=== PATIENT | female | born 1955 | race Caucasian/White ===

== ENCOUNTER 2017-03-30 18:30 | Emergency (ER) | payer SELFPAY | END 2017-03-30 22:13 | disposition home or self-care (01) | LOC: D.ER 18:30 | DX: S82.002A Unspecified fracture of left patella, initial encounter for closed fracture (principal); W01.0XXA Fall on same level from slipping, tripping and stumbling without subsequent striking against object, initial encounter; Y93.89 Activity, other specified; Y92.019 Unspecified place in single-family (private) house as the place of occurrence of the external cause; Z95.0 Presence of cardiac pacemaker ==

== ENCOUNTER 2017-11-15 14:21 | Observation (INO) | payer MEDICAID ==
[~2017-11-15] VITALS: Ht 160 cm; Wt 54.5 kg
--- NOTE | ~2017-11-15 | MORECARE ---
CASE MANAGEMENT DISCHARGE SUMMARY PATIENT: TACOS GOYAL UNIT: [id number] ADM DATE: 11/15/17 AGE: 62 : 51 SEX: F ROOM/BED: D.2134 AUTHOR: ALEJO WAN PHYSICIAN: REFERRING PHYSICIAN: VICKIE PEDRAZA MD DATE OF SERVICE: 11/20/17 Discharge Plan Patient Name: TACOS GO[facility]AL [facility] [facility] 1955 Planned Disposition: Home Anticipated Discharge Date: 11/19/17 Discharge Date: 11/19/2017 Expected LOS: 4 Initial Reviewer: [email or web address] Initial Review Date: 11/20/2017 Generated: 11/20/17 9:09 am Patient Name: TACOS GOYAL Page 43383 at 0809 All edits/amendments must be made on the electronic document DICTATION DATE: 11/20/17 08 DIE POLISHER: MARY BETH 11/20/17 08 RPT#: [id number] DC DATE:11/19/17 STATUS: DIS IN [facility] [address] [facility] [place] [address] END OF REPORT
[2017-11-15 15:30] LABS: BASOPHILS 1.1 % (0-2); EOSINOPHILS 2.3 % (0-7); HEMATOCRIT 27.3 % (36.0-48.0); HEMOGLOBIN 9.4 g/dL (12-16); LYMPHOCYTES 38.7 % (15-50); MCH 32.9 pg (26.0-34.0); MCHC 34.4 g/dL (31.0-37.0); MCV 95.5 fL (80.0-100.0); MEAN PLATELET VOLUME 10.6 fL (7.4-10.4); MONOCYTES 5.5 % (2-11); NEUTROPHILS 52.4 % (40-80); PLATELET COUNT 171 10x3/uL (130-400); RBC 2.86 10x6/uL (4.00-5.40); RDW 11.5 % (11.5-14.5); WBC 4.7 10x3/uL (4.8-10.8)
[2017-11-15 15:46] LABS: ALBUMIN 3.8 g/dL (3.4-5.0); ALKALINE PHOSPHATASE 97 U/L (46-116); ALT (SGPT) 14 U/L (10-68); BILIRUBIN - TOTAL 0.29 mg/dL (0.2-1.3); CALC OSMOLALITY 298 mosm/kg (275-300); CALCIUM 9.5 mg/dL (8.5-10.1); CARBON DIOXIDE 30.4 mmol/L (21.0-32.0); CHLORIDE - SERUM 102 mmol/L (98-107); CREATININE - SERUM 2.7 mg/dL (0.6-1.3); GLUCOSE 121 mg/dL (74-106); POTASSIUM - SERUM 3.9 mmol/L (3.5-5.1); PROTEIN - SERUM 7.6 g/dL (6.4-8.2); SODIUM 142 mmol/L (136-145); UREA NITROGEN 55 mg/dL (7-18); eGFR NON AFRICAN AMERICAN 19 mL/min (90-120)
[2017-11-15 15:54] LABS: APTT 27.3 SECONDS (22.8-39.4); INR 1.03 (0.85-1.17); PROTIME 13.1 SECONDS (11.6-15.0)
[2017-11-15 16:07] LABS: CKMB 1.7 U/L (0.0-3.6); CREATINE KINASE 109 UL (21-215); THYROID STIMULATING HORMONE 2.08 uIU/mL (0.36-3.74)
[2017-11-15 16:09] LABS: TROPONIN-I < 0.017 ng/mL (0.000-0.060)
[2017-11-15 16:27] LABS: UDS - AMPHET NEGATIVE QUAL (NEGATIVE); UDS - BARB NEGATIVE QUAL (NEGATIVE); UDS - BENZO NEGATIVE QUAL (NEGATIVE); UDS - COCAINE NEGATIVE QUAL (NEGATIVE); UDS - OPIATE NEGATIVE QUAL (NEGATIVE); UDS - PCP NEGATIVE QUAL (NEGATIVE); UDS - THC NEGATIVE QUAL (NEGATIVE)
[2017-11-15 16:32] VITALS: BP 137/63
[2017-11-15 16:32] LABS: APPEARANCE CLEAR (CLEAR); BILIRUBIN NEGATIVE (NEGATIVE); COLOR YELLOW (YELLOW); GLUCOSE NEGATIVE (NEGATIVE); KETONE NEGATIVE (NEGATIVE); NITRITE NEGATIVE (NEGATIVE); PROTEIN 1+ mg/dL (NEGATIVE); UROBILINOGEN NORMAL (NORMAL)
[2017-11-15 16:33] LABS: WHITE CELLS - URINE 0-5 /hpf (0-5)
[2017-11-15 16:34] LABS: BACTERIA FEW /hpf (NONE SEEN)
[2017-11-15 18:42] VITALS: BP 143/61
[2017-11-15 18:45] LABS: CKMB 1.8 U/L (0.0-3.6); CREATINE KINASE 133 UL (21-215)
[2017-11-15 18:48] LABS: TROPONIN-I < 0.017 ng/mL (0.000-0.060)
[2017-11-15 19:00] VITALS: BP 136/68
[2017-11-15 20:03] VITALS: BP 140/59; BMI 21.3
[2017-11-15] MEDS ORDERED: POTASSIUM CHLO20 MEQ PO (21:40)
[2017-11-15] MEDS ORDERED: KEPPRA750 MG PO (21:41)
[2017-11-15] MEDS ORDERED: LASIX80 MG PO (21:41)
[2017-11-15] MEDS ORDERED: LOSARTAN POTASS25 MG PO (21:42)
[2017-11-15] MEDS ORDERED: PRAVASTATIN SOD10 MG PO (21:43)
[2017-11-15] MEDS ORDERED: COREG12.5 MG PO (21:44)
[2017-11-15] MEDS ORDERED: XANAX0.25 MG PO (21:46)
[2017-11-15] MEDS ORDERED: ISOSORBIDE MONO30 M1 PO (21:48)
[2017-11-15] MEDS ORDERED: LEVEMIR IN100 UNITS/ SC (21:49)
[2017-11-15 22:25] VITALS: BP 140/59
[2017-11-16] VITALS (8 sets, daily range): BP systolic 100–151; BP diastolic 40–70; Ht 160 cm; Wt 54.5 kg
[2017-11-16 00:56] LABS: CKMB 1.6 U/L (0.0-3.6); CREATINE KINASE 95 UL (21-215)
[2017-11-16 00:59] LABS: TROPONIN-I < 0.017 ng/mL (0.000-0.060)
[2017-11-16 06:35] LABS: BASOPHILS 0.5 % (0-2); EOSINOPHILS 2.3 % (0-7); HEMATOCRIT 23.8 % (36.0-48.0); HEMOGLOBIN 8.3 g/dL (12-16); LYMPHOCYTES 36.3 % (15-50); MCH 32.8 pg (26.0-34.0); MCHC 34.9 g/dL (31.0-37.0); MCV 94.1 fL (80.0-100.0); MEAN PLATELET VOLUME 10.6 fL (7.4-10.4); MONOCYTES 7.9 % (2-11); PLATELET COUNT 140 10x3/uL (130-400); RBC 2.53 10x6/uL (4.00-5.40); RDW 11.7 % (11.5-14.5); WBC 3.9 10x3/uL (4.8-10.8)
[2017-11-16 06:46] LABS: CKMB 1.1 U/L (0.0-3.6); CREATINE KINASE 85 UL (21-215); TROPONIN-I < 0.017 ng/mL (0.000-0.060)
[2017-11-16 06:56] LABS: ANION GAP 13.5 mmol/L (8-16); CALCIUM 9.4 mg/dL (8.5-10.1); CARBON DIOXIDE 27.1 mmol/L (21.0-32.0); CREATININE - SERUM 2.3 mg/dL (0.6-1.3); MAGNESIUM - SERUM 1.8 mg/dL (1.8-2.4); POTASSIUM - SERUM 3.6 mmol/L (3.5-5.1)
[2017-11-16 11:26] LABS: % SATURATION 29 % (15-55); IRON 74 ug/dl (35-150); TOTAL IRON BIND CAPACITY 253 ug/dl (260-445); UNSAT IRON BIND CAPACITY 179 ug/dl (150-375)
[2017-11-16 17:52] LABS: CKMB 1.2 U/L (0.0-3.6); CREATINE KINASE 115 UL (21-215); TROPONIN-I < 0.017 ng/mL (0.000-0.060)
[2017-11-16 22:36] LABS: CKMB 1.4 U/L (0.0-3.6); CREATINE KINASE 111 UL (21-215); TROPONIN-I < 0.017 ng/mL (0.000-0.060)
[2017-11-17] VITALS (9 sets, daily range): BP systolic 104–141; BP diastolic 57–79
[2017-11-17 05:12] LABS: BASOPHILS 0.7 % (0-2); EOSINOPHILS 1.9 % (0-7); HEMATOCRIT 23.1 % (36.0-48.0); HEMOGLOBIN 8.1 g/dL (12-16); IMMATURE GRANULOCYTES 0.2 % (0-5); MCH 32.9 pg (26.0-34.0); MCHC 35.1 g/dL (31.0-37.0); MCV 93.9 fL (80.0-100.0); MEAN PLATELET VOLUME 10.8 fL (7.4-10.4); NEUTROPHILS 48.2 % (40-80); PLATELET COUNT 124 10x3/uL (130-400); RBC 2.46 10x6/uL (4.00-5.40); RDW 11.6 % (11.5-14.5); WBC 4.2 10x3/uL (4.8-10.8)
[2017-11-17 05:13] LABS: FOLATE (FOLIC ACID) - SERUM 7.1 ng/mL (>3.0)
[2017-11-17 05:31] LABS: CALC OSMOLALITY 300 mosm/kg (275-300); CALCIUM 8.7 mg/dL (8.5-10.1); CARBON DIOXIDE 23.1 mmol/L (21.0-32.0); CHLORIDE - SERUM 109 mmol/L (98-107); CKMB 1.3 U/L (0.0-3.6); CREATINE KINASE 91 UL (21-215); GLUCOSE 108 mg/dL (74-106); POTASSIUM - SERUM 3.5 mmol/L (3.5-5.1); SODIUM 144 mmol/L (136-145); TROPONIN-I 0.024 ng/mL (0.000-0.060); UREA NITROGEN 48 mg/dL (7-18); eGFR NON AFRICAN AMERICAN 27 mL/min (90-120)
[2017-11-18 01:16] VITALS: BP 118/43
[2017-11-18 05:05] LABS: BASOPHILS 0.2 % (0-2); EOSINOPHILS 1.8 % (0-7); HEMATOCRIT 26.3 % (36.0-48.0); HEMOGLOBIN 9.1 g/dL (12-16); IMMATURE GRANULOCYTES 0.2 % (0-5); LYMPHOCYTES 38.7 % (15-50); MCH 32.5 pg (26.0-34.0); MCHC 34.6 g/dL (31.0-37.0); MCV 93.9 fL (80.0-100.0); MEAN PLATELET VOLUME 10.9 fL (7.4-10.4); MONOCYTES 7.1 % (2-11); PLATELET COUNT 123 10x3/uL (130-400); RDW 11.8 % (11.5-14.5); WBC 4.9 10x3/uL (4.8-10.8)
[2017-11-18 05:18] LABS: ANION GAP 13.7 mmol/L (8-16); CALCIUM 9.2 mg/dL (8.5-10.1); CARBON DIOXIDE 24.8 mmol/L (21.0-32.0); CREATININE - SERUM 2.3 mg/dL (0.6-1.3); POTASSIUM - SERUM 3.5 mmol/L (3.5-5.1)
[2017-11-18 05:51] VITALS: BP 141/67
[2017-11-18 08:20] VITALS: BP 159/73
[2017-11-18 09:00] VITALS: BP 132/63; BP 139/64; BP 159/73
[2017-11-18 20:42] VITALS: BP 112/50
[2017-11-19 01:36] VITALS: BP 133/64
[2017-11-19 06:04] VITALS: BP 123/66
[2017-11-19 06:29] LABS: BASOPHILS 0.6 % (0-2); EOSINOPHILS 2.3 % (0-7); HEMATOCRIT 21.8 % (36.0-48.0); LYMPHOCYTES 31.9 % (15-50); MCH 32.8 pg (26.0-34.0); MCHC 34.4 g/dL (31.0-37.0); MCV 95.2 fL (80.0-100.0); MEAN PLATELET VOLUME 10.4 fL (7.4-10.4); NEUTROPHILS 58.2 % (40-80); PLATELET COUNT 125 10x3/uL (130-400); RBC 2.29 10x6/uL (4.00-5.40); RDW 11.8 % (11.5-14.5); WBC 4.9 10x3/uL (4.8-10.8)
[2017-11-19 06:33] LABS: ANION GAP 11.5 mmol/L (8-16); CALCIUM 8.7 mg/dL (8.5-10.1); CARBON DIOXIDE 25.9 mmol/L (21.0-32.0); CREATININE - SERUM 2.2 mg/dL (0.6-1.3); POTASSIUM - SERUM 3.4 mmol/L (3.5-5.1)
[2017-11-19 06:41] LABS: HEMOGLOBIN 7.5 g/dL (12-16)
[2017-11-19 09:15] VITALS: BP 127/60
[2017-11-19 11:05] VITALS: BP 164/69
[2017-11-19 14:42] VITALS: BP 156/87
== END 2017-11-19 17:50 | disposition home or self-care (01) ==
LOC: D.ER 14:21 → OBSVTIME 17:47 → D.M2 17:47 → D.EDHOLD 17:47 → D.M2 18:33
PROVIDERS: Family Medicine; Internal Medicine Nephrology
DX: I95.1 Orthostatic hypotension (principal); I42.9 Cardiomyopathy, unspecified; D50.9 Iron deficiency anemia, unspecified; D62 Acute posthemorrhagic anemia; I10 Essential (primary) hypertension; E78.5 Hyperlipidemia, unspecified; E11.9 Type 2 diabetes mellitus without complications; G40.909 Epilepsy, unspecified, not intractable, without status epilepticus; K21.9 Gastro-esophageal reflux disease without esophagitis; N17.9 Acute kidney failure, unspecified; E86.9 Volume depletion, unspecified; D61.818 Other pancytopenia; K44.9 Diaphragmatic hernia without obstruction or gangrene; K92.1 Melena; Z95.810 Presence of automatic (implantable) cardiac defibrillator

== ENCOUNTER 2017-11-26 21:23 | Inpatient (IN) | payer MEDICARE, MEDICAID ==
[~2017-11-26] VITALS: Ht 160 cm; Wt 56.1 kg
--- NOTE | ~2017-11-26 | MORECARE ---
CASE MANAGEMENT DISCHARGE SUMMARY PATIENT: TACOS GOYAL UNIT: [id number] ADM DATE: 11/27/17 AGE: 62 : 51 SEX: F ROOM/BED: D.0749 AUTHOR: SOCO,DOC PHYSICIAN: REFERRING PHYSICIAN: VICKIE PEDRAZA MD DATE OF SERVICE: 12/03/17 Discharge Plan Patient Name: TACOS GOYAL Facility: [facility]:[place] : 1955 Planned Disposition: Home Anticipated Discharge Date: 11/30/17 Discharge Date: 11/30/2017 Expected LOS: 3 Initial Reviewer: [email or web address] Initial Review Date: 11/28/2017 Generated: 12/03/17 9:37 am Comments DCP- Discharge Planning Updated by [email or web address]: Wojciech Cameron on 11/28/17 1:[address] Patient Name: TACOS GOYAL Admission Status: ER Accout number: [id number] Admission Date: 11-27-2017 : 1955 Admission Diagnosis: Attending: VICKIE PEDRAZA Current LOS: 1 Anticipated DC Date: 11-28-2017 Planned Disposition: Home Primary Insurance: MEDICAID [place] Discharge Planning Comments: CM RECEIVED REQUEST TO MEET WITH PT IN ROOM. CM MET WITH PT IN ROOM TO DISCUSS DISCHARGE PLANNING AND NEEDS. PT REPORTS NEEDING A RIDE HOME AT DISCHARGE. PT REPORTS LIVING AT HOME INDEPENDENTLY WITH HER FRIEND THAT ASSISTS WITH MEDICATION MANAGEMENT AND TRANSPORTATION. PT HAS A GLUCOMETER WITH NO MEDICAL EQUIPMENT PROVIDER PREFERENCE AND NO OUTSIDE SERVICES ASSISTING IN THE HOME. CM DISCUSSED AVAILABILITY OF HOME HEALTH, REHAB SERVICES AND MEDICAL EQUIPMENT. PT DENIES DISCHARGE NEEDS OTHER THAN NEEDING A RIDE HOME. CM CALLED PT'S EMERGENCY CONTACT, MARIPOSA ASHU, , WHO REPORTS THAT SHE WILL ORTHODONTIC TECHNICIAN PT AT DISCHARGE. DISCHARGE ADDRESS [address] [place] [address], [address] FOR DISCHARGE TRANSPORTATION, CONTACT MARIPOSA [place], . PT GOING HOME WITH MARIPOSA, DENIES DISCHARGE NEEDS AT THIS TIME. CM TO FOLLOW AND ASSIST IF NEEDED. Mid Level Provider: Wojciech Cameron DCPIA - Discharge Planning Initial Assessment Updated by [email or web address]: Wojciech Cameron on 11/28/17 2:31 pm * Is the patient Alert and Oriented? Yes * How many steps to enter\exit or inside your home? * PCP NONE * Pharmacy [facility] * Preadmission Environment Home with Family * ADLs Partial Dependent * Partial ADLs (Assistance needed) Medication Management * Equipment Glucometer * Other Equipment NO MEDICAL EQUIPMENT PROVIDER PREFERENCE * List name and contact numbers for known caregivers / representatives who currently or will assist patient after discharge: CRISTINA NEWBERRY, * Verbal permission to speak to the caregivers and representatives has been obtained from the patient. Yes * Community resources currently utilized None * Please name any agencies selected above. CIRSTINA NEWBERRY, * Additional services required to return to the preadmission environment? No * Can the patient safely return to the preadmission environment? Yes * Has this patient been hospitalized within the prior 30 days at any hospital? No Coverage Notice Reviewer: [email or web address] Mickey Ruiz Notice Issued Date-Time: 11/30/2017 11:41 Notice Type: IM Discharge Notice Notice Delivered To: Patient Relationship to Patient: Self Waist Fitter Name: Delivery Method: HAND - Hand Delivered Natasha Days: Prior Verbal Notification: Recipient Understood Notice: Yes Recipient Signature: Yes Med Rec Note Co-signed by Attending: Coverage Notice Comment: Last DP export: 11/28/17 1:39 Patient Name: TACOS GOYAL Page 00355 at 0837 All edits/amendments must be made on the electronic document DICTATION DATE: 12/03/17835 LOCKER ATTENDANT: MARY BETH 12/03/17835 RPT#: [id number] DC DATE:11/30/17 STATUS: DIS IN [facility] [address] [place] [address] END OF REPORT
--- NOTE | ~2017-11-26 | MORECARE ---
CASE MANAGEMENT DISCHARGE SUMMARY PATIENT: TACOS GOYAL UNIT: [id number] ADM DATE: 11/27/17 AGE: 62 : 51 SEX: F ROOM/BED: D.3489 AUTHOR: SOCO,DOC PHYSICIAN: REFERRING PHYSICIAN: VICKIE PEDRAZA MD DATE OF SERVICE: 11/28/17 Discharge Plan Patient Name: TACOS GOYAL Facility: [facility]:[place] : 1955 Planned Disposition: Home Anticipated Discharge Date: 11/28/17 Discharge Date: Expected LOS: 1 Initial Reviewer: [email or web address] Initial Review Date: 11/28/2017 Generated: 11/28/17 3:39 pm Comments DCP- Discharge Planning Updated by [email or web address]: Wojciech Cameron on 11/28/17 1:[address] Patient Name: TACOS GOYAL Admission Status: ER Accout number: [id number] Admission Date: 11-27-2017 : 1955 Admission Diagnosis: Attending: VICKIE PEDRAZA Current LOS: 1 Anticipated DC Date: 11-28-2017 Planned Disposition: Home Primary Insurance: MEDICAID [place] Discharge Planning Comments: CM RECEIVED REQUEST TO MEET WITH PT IN ROOM. CM MET WITH PT IN ROOM TO DISCUSS DISCHARGE PLANNING AND NEEDS. PT REPORTS NEEDING A RIDE HOME AT DISCHARGE. PT REPORTS LIVING AT HOME INDEPENDENTLY WITH HER FRIEND THAT ASSISTS WITH MEDICATION MANAGEMENT AND TRANSPORTATION. PT HAS A GLUCOMETER WITH NO MEDICAL EQUIPMENT PROVIDER PREFERENCE AND NO OUTSIDE SERVICES ASSISTING IN THE HOME. CM DISCUSSED AVAILABILITY OF HOME HEALTH, REHAB SERVICES AND MEDICAL EQUIPMENT. PT DENIES DISCHARGE NEEDS OTHER THAN NEEDING A RIDE HOME. CM CALLED PT'S EMERGENCY CONTACT, MARIPOSA ASHU, , WHO REPORTS THAT SHE WILL LABVIEW PROGRAMMER PT AT DISCHARGE. DISCHARGE [address]ESS [address] [place] [address], [place] [address], [place], [place]. FOR DISCHARGE TRANSPORTATION, CONTACT MARIPOSA ASHU, . PT GOING HOME WITH MARIPOSA, DENIES DISCHARGE NEEDS AT THIS TIME. CM TO FOLLOW AND ASSIST IF NEEDED. Restaurant Attendant: Wojciech Cameron DCPIA - Discharge Planning Initial Assessment Updated by [email or web address]: Wojciech Cameron on 11/28/17 2:31 pm * Is the patient Alert and Oriented? Yes * How many steps to enter\exit or inside your home? * PCP NONE * Pharmacy [facility] * Preadmission Environment Home with Family * ADLs Partial Dependent * Partial ADLs (Assistance needed) Medication Management * Equipment Glucometer * Other Equipment NO MEDICAL EQUIPMENT PROVIDER PREFERENCE * List name and contact numbers for known caregivers / representatives who currently or will assist patient after discharge: CRISTINA NEWBERRY, * Verbal permission to speak to the caregivers and representatives has been obtained from the patient. Yes * Community resources currently utilized None * Please name any agencies selected above. CRISTINA NEWBERRY, * Additional services required to return to the preadmission environment? No * Can the patient safely return to the preadmission environment? Yes * Has this patient been hospitalized within the prior 30 days at any hospital? No Last DP export: 11/28/17 1:29 Patient Name: TACOS GOYAL Page 07748 at 1439 All edits/amendments must be made on the electronic document DICTATION DATE: 11/28/171438 RN POST PARTUM: MARY BETH 11/28/171438 RPT#: [id number] DC DATE: STATUS: ADM IN [facility] [address] [place] [address] END OF REPORT
--- NOTE | ~2017-11-26 | MORECARE ---
CASE MANAGEMENT DISCHARGE SUMMARY PATIENT: TACOS GOYAL UNIT: [id number] ADM DATE: 11/27/17 AGE: 62 : 51 SEX: F ROOM/BED: D.2107 AUTHOR: ALEJO WAN PHYSICIAN: REFERRING PHYSICIAN: VICKIE PEDRAZA MD DATE OF SERVICE: 11/27/17 Discharge Plan Patient Name: TACOS GOYAL Facility: [facility]:[place] : 1955 Planned Disposition: Anticipated Discharge Date: Discharge Date: Expected LOS: Initial Reviewer: [email or web address] Initial Review Date: 11/27/2017 Generated: 11/27/17 11:25 am Patient Name: TACOS GOYAL Page 41612 at 1025 All edits/amendments must be made on the electronic document DICTATION DATE: 11/27/17 1025 DEICER REPAIRER PNEUMATIC: MARY BETH 11/27/17 1025 RPT#: [id number] DC DATE: STATUS: ADM IN [facility] [address] [place] [address] END OF REPORT
--- NOTE | ~2017-11-26 | MORECARE ---
CASE MANAGEMENT DISCHARGE SUMMARY PATIENT: TACOS GOYAL UNIT: [id number] ADM DATE: 11/27/17 AGE: 62 : 51 SEX: F ROOM/BED: D.2100 AUTHOR: ALEJO WAN PHYSICIAN: REFERRING PHYSICIAN: VICKIE PEDRAZA MD DATE OF SERVICE: 11/28/17 Discharge Plan Patient Name: TACOS GOYAL Facility: [facility]:[place] : 1955 Planned Disposition: Home Anticipated Discharge Date: 11/28/17 Discharge Date: Expected LOS: 1 Initial Reviewer: [email or web address] Initial Review Date: 11/28/2017 Generated: 11/28/17 3:29 pm Last DP export: 11/27/17 9:25 Patient Name: TACOS GOYAL Page 91011 at 1429 All edits/amendments must be made on the electronic document DICTATION DATE: 11/28/171428 DIRECTOR PROCESS: MARY BETH 11/28/17 142 RPT#: [id number] DC DATE: STATUS: ADM IN [facility] [address] [place] [address] END OF REPORT
[~2017-11-26 21:23] MED LIST: COREG12.5 MG PO; ISOSORBIDE MONO30 M1 PO; KEPPRA750 MG PO; LASIX80 MG PO; LEVEMIR IN100 UNITS/ SC; LOSARTAN POTASS25 MG PO; POTASSIUM CHLO20 MEQ PO; PRAVASTATIN SOD10 MG PO; XANAX0.25 MG PO
[2017-11-26 22:07] VITALS: BP 106/48
[2017-11-26 22:51] LABS: BASOPHILS 0.2 % (0-2); EOSINOPHILS 0.3 % (0-7); HEMATOCRIT 34.4 % (36.0-48.0); HEMOGLOBIN 11.7 g/dL (12-16); IMMATURE GRANULOCYTES 0.2 % (0-5); LYMPHOCYTES 9.7 % (15-50); MCH 33.1 pg (26.0-34.0); MCV 97.2 fL (80.0-100.0); MEAN PLATELET VOLUME 11.7 fL (7.4-10.4); MONOCYTES 8.3 % (2-11); NEUTROPHILS 81.3 % (40-80); RBC 3.54 10x6/uL (4.00-5.40); RDW 12.1 % (11.5-14.5); WBC 6.3 10x3/uL (4.8-10.8)
[2017-11-26 22:58] LABS: PLATELET COUNT 88 10x3/uL (130-400)
[2017-11-26 23:00] VITALS: BP 114/55
[2017-11-26 23:01] LABS: APPEARANCE HAZY (CLEAR); COLOR YELLOW (YELLOW); SPECIFIC GRAVITY 1.015 (1.005-1.020)
[2017-11-26 23:02] LABS: BACTERIA MANY /hpf (NONE SEEN); BILIRUBIN NEGATIVE (NEGATIVE); EPITHELIAL CELLS NSEEN /hpf (0-5); GLUCOSE NEGATIVE (NEGATIVE); KETONE NEGATIVE (NEGATIVE); NITRITE NEGATIVE (NEGATIVE); PROTEIN 2+ mg/dL (NEGATIVE); RED CELLS - URINE OCC /hpf (0-5); UROBILINOGEN NORMAL (NORMAL); WHITE CELLS - URINE >50 /hpf (0-5)
[2017-11-26 23:07] LABS: UDS - AMPHET NEGATIVE QUAL (NEGATIVE); UDS - BARB NEGATIVE QUAL (NEGATIVE); UDS - BENZO NEGATIVE QUAL (NEGATIVE); UDS - COCAINE NEGATIVE QUAL (NEGATIVE); UDS - OPIATE NEGATIVE QUAL (NEGATIVE); UDS - PCP NEGATIVE QUAL (NEGATIVE); UDS - THC NEGATIVE QUAL (NEGATIVE)
[2017-11-26 23:09] LABS: ALBUMIN 3.3 g/dL (3.4-5.0); ALKALINE PHOSPHATASE 131 U/L (46-116); ALT (SGPT) 41 U/L (10-68); BILIRUBIN - TOTAL 0.37 mg/dL (0.2-1.3); CALC OSMOLALITY 301 mosm/kg (275-300); CALCIUM 8.9 mg/dL (8.5-10.1); CARBON DIOXIDE 29.9 mmol/L (21.0-32.0); CHLORIDE - SERUM 100 mmol/L (98-107); CREATININE - SERUM 3.1 mg/dL (0.6-1.3); GLUCOSE 196 mg/dL (74-106); POTASSIUM - SERUM 3.8 mmol/L (3.5-5.1); PROTEIN - SERUM 7.3 g/dL (6.4-8.2); SODIUM 140 mmol/L (136-145); UREA NITROGEN 62 mg/dL (7-18); eGFR NON AFRICAN AMERICAN 16 mL/min (90-120)
[2017-11-26 23:13] LABS: CKMB 0.6 U/L (0.0-3.6); CREATINE KINASE 75 UL (21-215); MAGNESIUM - SERUM 1.7 mg/dL (1.8-2.4); PRO BNP 7259 pg/mL (0-125); THYROID STIMULATING HORMONE 1.24 uIU/mL (0.36-3.74); TROPONIN-I < 0.017 ng/mL (0.000-0.060)
[2017-11-27] VITALS (7 sets, daily range): BP systolic 102–142; BP diastolic 46–65; Ht 160 cm; Wt 56.1 kg
[2017-11-27] MEDS ORDERED: ALBUTEROL SULF8.5 GM INH (00:58)
[2017-11-27 05:59] LABS: BASOPHILS 0.3 % (0-2); EOSINOPHILS 0.1 % (0-7); IMMATURE GRANULOCYTES 0.1 % (0-5); LYMPHOCYTES 9.3 % (15-50); MCH 33.1 pg (26.0-34.0); MCHC 34.4 g/dL (31.0-37.0); MCV 96.3 fL (80.0-100.0); MEAN PLATELET VOLUME 11.4 fL (7.4-10.4); MONOCYTES 3.5 % (2-11); NEUTROPHILS 86.7 % (40-80); RDW 12.2 % (11.5-14.5); WBC 7.4 10x3/uL (4.8-10.8)
[2017-11-27 06:08] LABS: HEMATOCRIT 25.9 % (36.0-48.0); HEMOGLOBIN 8.9 g/dL (12-16); PLATELET COUNT 117 10x3/uL (130-400); RBC 2.69 10x6/uL (4.00-5.40)
[2017-11-27 06:17] LABS: ANION GAP 17.4 mmol/L (8-16); CALCIUM 8.9 mg/dL (8.5-10.1); CARBON DIOXIDE 24.3 mmol/L (21.0-32.0); POTASSIUM - SERUM 3.7 mmol/L (3.5-5.1)
[2017-11-28] VITALS: BP 127/58
[2017-11-28 04:00] VITALS: BP 135/57
[2017-11-28 04:39] LABS: BASOPHILS 0.2 % (0-2); EOSINOPHILS 0.7 % (0-7); HEMOGLOBIN 7.8 g/dL (12-16); IMMATURE GRANULOCYTES 0.2 % (0-5); LYMPHOCYTES 13.2 % (15-50); MCH 32.5 pg (26.0-34.0); MCHC 33.9 g/dL (31.0-37.0); MCV 95.8 fL (80.0-100.0); MEAN PLATELET VOLUME 11.2 fL (7.4-10.4); MONOCYTES 8.6 % (2-11); NEUTROPHILS 77.1 % (40-80); RDW 11.9 % (11.5-14.5)
[2017-11-28 04:49] LABS: PLATELET COUNT 91 10x3/uL (130-400); WBC 5.4 10x3/uL (4.8-10.8)
[2017-11-28 05:09] LABS: ANION GAP 16.1 mmol/L (8-16); CALCIUM 8.7 mg/dL (8.5-10.1); CARBON DIOXIDE 23.5 mmol/L (21.0-32.0); CREATININE - SERUM 2.8 mg/dL (0.6-1.3); POTASSIUM - SERUM 3.6 mmol/L (3.5-5.1)
[2017-11-28 08:38] VITALS: BP 132/78
[2017-11-28 12:01] VITALS: BP 127/74
[2017-11-28 16:31] VITALS: BP 128/66
[2017-11-28 20:00] VITALS: BP 144/73
[2017-11-29] VITALS: BP 150/75
[2017-11-29 04:00] VITALS: BP 140/72
[2017-11-29 06:17] LABS: BASOPHILS 0.2 % (0-2); EOSINOPHILS 2.1 % (0-7); HEMOGLOBIN 9.4 g/dL (12-16); IMMATURE GRANULOCYTES 0.2 % (0-5); LYMPHOCYTES 26.1 % (15-50); MCH 32.4 pg (26.0-34.0); MCHC 34.8 g/dL (31.0-37.0); MCV 93.1 fL (80.0-100.0); MONOCYTES 8.3 % (2-11); NEUTROPHILS 63.1 % (40-80); PLATELET COUNT 122 10x3/uL (130-400); RDW 12.6 % (11.5-14.5); WBC 4.8 10x3/uL (4.8-10.8)
[2017-11-29 06:44] LABS: ANION GAP 13.3 mmol/L (8-16); CALCIUM 8.8 mg/dL (8.5-10.1); CARBON DIOXIDE 23.6 mmol/L (21.0-32.0); CREATININE - SERUM 2.5 mg/dL (0.6-1.3)
[2017-11-29 06:51] LABS: POTASSIUM - SERUM 2.9 mmol/L (3.5-5.1)
[2017-11-29 08:06] VITALS: BP 128/71
[2017-11-29 11:14] VITALS: BP 131/68
[2017-11-29 15:02] VITALS: BP 138/76
[2017-11-29 20:00] VITALS: BP 149/76
[2017-11-30] VITALS: BP 121/85
[2017-11-30 04:00] VITALS: BP 138/72
[2017-11-30 06:12] LABS: HEMOGLOBIN 9.6 g/dL (12-16); LYMPHOCYTES 25.1 % (15-50); MCH 32.7 pg (26.0-34.0); MCHC 35.6 g/dL (31.0-37.0); MCV 91.8 fL (80.0-100.0); MEAN PLATELET VOLUME 10.8 fL (7.4-10.4); NEUTROPHILS 62.4 % (40-80); PLATELET COUNT 125 10x3/uL (130-400); RBC 2.94 10x6/uL (4.00-5.40); RDW 12.5 % (11.5-14.5); WBC 4.4 10x3/uL (4.8-10.8)
[2017-11-30 06:24] LABS: ANION GAP 15.7 mmol/L (8-16); CALCIUM 9.3 mg/dL (8.5-10.1); CARBON DIOXIDE 23.1 mmol/L (21.0-32.0); CREATININE - SERUM 2.3 mg/dL (0.6-1.3); POTASSIUM - SERUM 3.8 mmol/L (3.5-5.1)
[2017-11-30 08:20] VITALS: BP 155/86
[2017-11-30] MEDS ORDERED: LEVAQUIN750 MG PO (10:30)
[2017-11-30 12:07] VITALS: BP 141/74
== END 2017-11-30 18:56 | disposition home or self-care (01) | DRG 871 ==
LOC: D.ER 21:23 → D.M2 11-27 00:14
PROVIDERS: Family Medicine; Internal Medicine Nephrology
DX: A41.9 Sepsis, unspecified organism (principal); G93.41 Metabolic encephalopathy; N10 Acute pyelonephritis; N17.9 Acute kidney failure, unspecified; I42.9 Cardiomyopathy, unspecified; I12.9 Hypertensive chronic kidney disease with stage 1 through stage 4 chronic kidney disease, or unspecified chronic kidney disease; E11.22 Type 2 diabetes mellitus with diabetic chronic kidney disease; N18.3 Chronic kidney disease, stage 3 (moderate); E86.9 Volume depletion, unspecified; D64.9 Anemia, unspecified; D69.6 Thrombocytopenia, unspecified; E78.5 Hyperlipidemia, unspecified; K21.9 Gastro-esophageal reflux disease without esophagitis; Z95.0 Presence of cardiac pacemaker

== ENCOUNTER → 2018-02-19 09:34 | Outpatient (CLI) | payer MEDICARE ==
[2017-11-27 13:20] VITALS: BMI 21.9
[~2018-02-19 09:34] MED LIST changes: +ALBUTEROL SULF8.5 GM INH; +LEVAQUIN750 MG PO
== END | disposition home or self-care (01) ==
LOC: D.US 09:34
DX: I10 Essential (primary) hypertension (principal); E08.21 Diabetes mellitus due to underlying condition with diabetic nephropathy; Z95.0 Presence of cardiac pacemaker; R56.9 Unspecified convulsions; E78.5 Hyperlipidemia, unspecified; Z68.22 Body mass index [BMI] 22.0-22.9, adult

== ENCOUNTER 2020-05-24 11:30 | Outpatient (CLI) | payer MEDICARE ==
[2020-01-06 15:02] VITALS: BMI 28.3
[~2020-05-24 11:30] MED LIST changes: +LEVOFLOXACIN500 MG PO; +METOLAZONE2.5 MG PO; +MIRALAX17 GM PO; +PREDNISONE10 MG PO; +TAMIFLU75 MG PO; +TESSALON PERLE100 MG PO; +ZPAK PO
== END 2020-05-24 23:59 | disposition home or self-care (01) ==
LOC: D.MAMMO 11:30
PROVIDERS: ATTEND General Practice
DX: Z12.31 Encounter for screening mammogram for malignant neoplasm of breast (principal)